=== PATIENT | male | born 1965 | race Hispanic/Latino ===

== ENCOUNTER 2017-02-09 12:41 | Day surgery (SDC) | payer MEDICARE ==
[2017-02-02 10:26] VITALS: BMI 24.4
[2017-02-09 13:20] VITALS: TEMP 98.2; O2SAT 100
[2017-02-09] MEDS ORDERED: Methylene Blue 10 mg/mL(10ml) IV ONE (14:53)
[2017-02-09] MEDS ORDERED: Propofol 10 mg/ml Inj (20 ML) ONE (14:53)
[2017-02-09] MEDS ORDERED: Midazolam 2 MG/2 ML VIAL ONE (14:53)
[2017-02-09] MEDS ORDERED: Sodium Chloride 0.9% 1,000 ML IV SCH (16:00)
[2017-02-09 16:28] VITALS: BP 128/70; PULSE 74; RESP 19
== END 2017-02-09 17:05 | disposition home or self-care (01) ==
LOC: ENDO 12:41
PROVIDERS: ATTEND Internal Medicine Gastroenterology
DX: K62.1 Rectal polyp (principal); K57.30 Diverticulosis of large intestine without perforation or abscess without bleeding; K64.8 Other hemorrhoids; I25.10 Atherosclerotic heart disease of native coronary artery without angina pectoris; R13.10 Dysphagia, unspecified
CPT/HCPCS: 45380; 88305; J2250; J2704; J7040 ×2

== ENCOUNTER 2018-03-23 10:50 | Outpatient (CLI) | payer MEDICARE | END 2018-03-23 10:51 | disposition home or self-care (01) | LOC: LAB 10:50 ==

== ENCOUNTER 2018-03-29 10:23 | Outpatient (CLI) | payer MEDICARE | END 2018-03-29 10:24 | disposition home or self-care (01) | LOC: LAB 10:23 ==